=== PATIENT | male | born 1950 | race Two or more races ===

== ENCOUNTER → 2023-05-27 | Outpatient (CLI) | payer OTHER ==
[2023-05-27 08:40] LABS: Basophils # (auto) 0 10 ^3/uL (0-0.2); Basophils % (auto) 0.8 % (0.0-2.0); Eosinophils # (auto) 0.2 10 ^3/uL (0-0.8); Eosinophils % (auto) 3.6 % (0.0-7.0); Hematocrit 45.9 % (41.0-53.0); Hemoglobin 15.3 g/dL (13.5-17.5); Lymphocytes # (auto) 1.7 10 ^3/uL (0.4-5.4); Lymphocytes % (auto) 31.8 % (10.0-50.0); Mean Corpuscular Hemoglobin 30.2 pg (28.0-32.0); Mean Corpuscular Hgb Conc. 33.3 g/dL (32.0-36.0); Mean Corpuscular Volume 90.6 fL (80.0-100.0); Monocytes # (auto) 0.5 10 ^3/uL (0-1.3); Monocytes % (auto) 8.7 % (0.0-12.0); Neutrophils # (auto) 2.9 10 ^3/uL (1.6-8.6); Neutrophils % (auto) 55.1 % (37.0-80.0); Red Blood Cells 5.06 10^6/uL (4.5-5.90); Red Cell Distribution Width 13.5 % (11.8-14.3); White Blood Cell 5.3 10^3/uL (4.4-10.8)
[2023-05-27 09:51] LABS: Alanine Aminotransferase 19 U/L (7-40); Albumin 4.6 g/dL (3.2-4.8); Alkaline Phosphatase 59 U/L (46-116); Anion Gap 4 (5-15); Aspartate Aminotransferase 19 U/L (13-40); BUN/Creatinine Ratio 8.7 (10.0-20.0); Blood Urea Nitrogen 9 mg/dL (9-23); Calcium 9.6 mg/dL (8.5-10.1); Carbon Dioxide 29 mmol/L (20-30); Chloride 106 mmol/L (98-107); Cholesterol 184 mg/dL (< 200); Glucose 101 mg/dL (74-106); Potassium 4.5 mmol/L (3.5-5.1); Sodium 139 mmol/L (136-145); Triglycerides 93 mg/dL (< 150)
[2023-05-27 09:52] LABS: LDL Cholesterol 114 mg/dL (< 100)
[2023-05-27 09:53] LABS: Bilirubin, Total 0.6 mg/dL (0.2-1.0); HDL Cholesterol 60 mg/dL (40-59)
[2023-05-27 09:54] LABS: Total Protein 7.8 g/dL (5.7-8.2)
[2023-05-27 11:16] LABS: Free T4 (Free Thyroxine) 1.42 ng/dL (0.89-1.76)
== END | disposition home or self-care (01) ==
LOC: LAB 08:16
PROVIDERS: ATTEND Internal Medicine
DX: Z00.00 Encounter for general adult medical examination without abnormal findings (principal); Z29.9 Encounter for prophylactic measures, unspecified; R73.03 Prediabetes; E78.00 Pure hypercholesterolemia, unspecified
CPT/HCPCS: 36415; 80053; 80061; 83036; 84153; 84439; 84443; 85025

== ENCOUNTER → 2023-11-26 | Outpatient (CLI) | payer OTHER ==
[2023-11-26 08:35] LABS: Urine Bacteria None Seen /hpf (None Seen)
[2023-11-26 08:41] LABS: Basophils # (auto) 0 10 ^3/uL (0-0.2); Basophils % (auto) 1.1 % (0.0-2.0); Eosinophils # (auto) 0.2 10 ^3/uL (0-0.8); Eosinophils % (auto) 4.4 % (0.0-7.0); Hematocrit 43.7 % (41.0-53.0); Hemoglobin 14.5 g/dL (13.5-17.5); Lymphocytes # (auto) 1.3 10 ^3/uL (0.4-5.4); Mean Corpuscular Hgb Conc. 33.2 g/dL (32.0-36.0); Mean Corpuscular Volume 90.2 fL (80.0-100.0); Monocytes # (auto) 0.4 10 ^3/uL (0-1.3); Neutrophils # (auto) 2.5 10 ^3/uL (1.6-8.6); Neutrophils % (auto) 57.5 % (37.0-80.0); Nucleated Red Blood Cells % 0.1 %; Red Blood Cells 4.84 10^6/uL (4.5-5.90); Red Cell Distribution Width 13.4 % (11.8-14.3); White Blood Cell 4.4 10^3/uL (4.4-10.8)
[2023-11-26 08:45] LABS: Urine Blood Negative /uL (Negative); Urine Clarity Clear (Clear); Urine Color Yellow (Yellow); Urine Mucus FEW (None Seen); Urine Protein, UAD TRACE (Negative); Urine Specific Gravity 1.021 (1.001-1.035); Urine Urobilinogen Normal (Negative); Urine WBC 1 /hpf (0 - 3)
[2023-11-26 09:46] LABS: Alanine Aminotransferase 15 U/L (7-40); Alkaline Phosphatase 74 U/L (46-116); Anion Gap 5 (5-15); Aspartate Aminotransferase 25 U/L (13-40); BUN/Creatinine Ratio 8.7 (10.0-20.0); Blood Urea Nitrogen 9 mg/dL (9-23); Calcium 9.3 mg/dL (8.5-10.1); Carbon Dioxide 28 mmol/L (20-30); Chloride 106 mmol/L (98-107); Glucose 99 mg/dL (74-106); LDL Cholesterol 111 mg/dL (< 100); Potassium 4.3 mmol/L (3.5-5.1); Sodium 139 mmol/L (136-145); Triglycerides 94 mg/dL (< 150)
[2023-11-26 09:47] LABS: Albumin 4.3 g/dL (3.2-4.8); Bilirubin, Total 0.5 mg/dL (0.2-1.0); Cholesterol 172 mg/dL (< 200); HDL Cholesterol 52 mg/dL (40-59); Total Protein 7.6 g/dL (5.7-8.2)
== END | disposition home or self-care (01) ==
LOC: LAB 08:25
PROVIDERS: ATTEND Internal Medicine
DX: Z13.1 Encounter for screening for diabetes mellitus (principal); E78.00 Pure hypercholesterolemia, unspecified; R94.4 Abnormal results of kidney function studies; R73.03 Prediabetes; Z29.9 Encounter for prophylactic measures, unspecified; Z00.01 Encounter for general adult medical examination with abnormal findings
CPT/HCPCS: 36415; 80053; 80061; 81001; 82306; 83036; 84439; 84443; 85025

== ENCOUNTER 2024-01-28 09:04 | Inpatient (IN) | payer OTHER ==
[2024-01-27 07:42] LABS: Urine Bacteria None Seen /hpf (None Seen); Urine WBC None Seen /hpf (0 - 3)
[2024-01-27 08:10] LABS: Basophils # (auto) 0 10 ^3/uL (0-0.2); Basophils % (auto) 0.6 % (0.0-2.0); Eosinophils # (auto) 0.3 10 ^3/uL (0-0.8); Eosinophils % (auto) 5.9 % (0.0-7.0); Hematocrit 44.6 % (41.0-53.0); Lymphocytes # (auto) 1.4 10 ^3/uL (0.4-5.4); Lymphocytes % (auto) 26.6 % (10.0-50.0); Mean Corpuscular Hemoglobin 30.3 pg (28.0-32.0); Mean Corpuscular Hgb Conc. 33.6 g/dL (32.0-36.0); Mean Corpuscular Volume 90.2 fL (80.0-100.0); Monocytes # (auto) 0.5 10 ^3/uL (0-1.3); Monocytes % (auto) 9.3 % (0.0-12.0); Neutrophils # (auto) 3.1 10 ^3/uL (1.6-8.6); Neutrophils % (auto) 57.6 % (37.0-80.0); Red Blood Cells 4.95 10^6/uL (4.5-5.90); Red Cell Distribution Width 13.7 % (11.8-14.3); White Blood Cell 5.3 10^3/uL (4.4-10.8)
[2024-01-27 08:17] LABS: Urine Blood Negative /uL (Negative); Urine Clarity Clear (Clear); Urine Color Light-Yellow (Yellow); Urine Protein, UAD Negative (Negative); Urine Specific Gravity 1.017 (1.001-1.035); Urine Urobilinogen Normal (Negative); Urine pH 6.5 (5.0-9.0)
[2024-01-27 08:26] LABS: INR 1.03 (0.9-1.15); Partial Thromboplastin Time 27.1 SEC (24.5-34.5); Prothrombin Time 10.9 sec (9.3-11.8)
[2024-01-27 08:38] LABS: Alanine Aminotransferase 21 U/L (7-40); Albumin 4.4 g/dL (3.2-4.8); Alkaline Phosphatase 74 U/L (46-116); Anion Gap 4 (5-15); Aspartate Aminotransferase 17 U/L (13-40); BUN/Creatinine Ratio 10.9 (10.0-20.0); Bilirubin, Total 0.5 mg/dL (0.2-1.0); Blood Urea Nitrogen 10 mg/dL (9-23); Calcium 9.6 mg/dL (8.5-10.1); Carbon Dioxide 28 mmol/L (20-30); Chloride 107 mmol/L (98-107); Glucose 100 mg/dL (74-106); Potassium 4.6 mmol/L (3.5-5.1); Sodium 139 mmol/L (136-145); Total Protein 7.3 g/dL (5.7-8.2)
[~2024-01-28] VITALS: Ht 170.2 cm; Wt 71.5 kg
[2024-01-28] MEDS ORDERED: PROPOFOL 10 MG/ML 20 ML IV ONE (09:19)
[2024-01-28] MEDS ORDERED: LIDOCAINE 2% (LOCAL ANESTH.) PF 5ml SDV ONE ×2 (09:19→09:38)
[2024-01-28] MEDS ORDERED: ONDANSETRON HCL 4 MG/2 ML VIAL ONE (09:19)
[2024-01-28] MEDS ORDERED: PHENYLEPHRINE HCL 10 MG/ML VL ONE (09:19)
[2024-01-28] MEDS ORDERED: DexAMETHasone SOD PHOS 10MG/1ML VIAL INJ ONE (09:19)
[2024-01-28] MEDS ORDERED: ROCURONIUM 10MG/ML 10ML VIAL IV ONE (09:19)
[2024-01-28] MEDS ORDERED: SODIUM CHLORIDE LOCK 10 ML ONE ×2 (09:19→10:00)
[2024-01-28] MEDS ORDERED: ePHEDrine SULFATE 50 MG/ML AMP ONE (09:19)
[2024-01-28] MEDS ORDERED: KETOROLAC TROMETH 30 MG/ML 1ML VIAL ONE (09:19)
[2024-01-28] MEDS: MAGNESIUM SULFATE 1GM/100ML 100 ML IV ONE (09:28)
[2024-01-28] MEDS: ceFAZolin 2 GM/D5W50ml 50 ML IV ONE (09:28)
[2024-01-28] MEDS: GABAPENTIN 300 MG CAP PO ONE (09:30)
[2024-01-28] MEDS: ACETAMINOPHEN IV 1000 MG/100ML (10MG/ML) IV ONE (09:30)
[2024-01-28] MEDS: TRANEXAMIC ACID 20 ML ONE (09:51)
[2024-01-28] MEDS ORDERED: LIDOCAINE HCL 100 MG/5ML (2%) SYRG INJ IV ONE ×2 (10:01→12:46)
[2024-01-28] MEDS: levoFLOXacin 750MG 150 ML IV ONE (10:15)
[2024-01-28] MEDS ORDERED: KETAMINE 50mg/ML 1ml syringe ONE ×2 (10:38→12:49)
[2024-01-28] MEDS ORDERED: fentaNYL CITRATE 100 MCG/2 ML VL ONE (10:38)
[2024-01-28] MEDS ORDERED: MIDAZOLAM HCL 2MG/2ML 2ml VIAL (1mg/ml) ONE (10:38)
[2024-01-28] MEDS: LIDOCAINE W/ EPINEPHRINE 1% 20ML VIAL ONE (11:52)
[2024-01-28] MEDS ORDERED: SUGAMMADEX 200mg/2ml Vial (100MG/ML) IV ONE (13:31)
[2024-01-28] MEDS ORDERED: HYDROmorphone HCL 2 MG/ML VL/or syr ONE (13:34)
[2024-01-28] MEDS ORDERED: ONDANSETRON HCL 4 MG/2 ML VIAL IV PRN (14:00)
[2024-01-28] MEDS ORDERED: MORPHINE SULFATE INJ 2 MG/ml SYRG IV PRN (14:00)
[2024-01-28] MEDS ORDERED: NITROGLYCERIN 0.4 MG SL TAB SL PRN (14:00)
[2024-01-28] MEDS ORDERED: ACETAMINOPHEN 325 MG TAB PO PRN (14:00)
[2024-01-28 14:29] VITALS: PULSE 69; RESP 13; O2SAT 97
[2024-01-28] MEDS: HYDROmorphone HCL 2 MG/ML VL/or syr ONE (14:59)
[2024-01-28] MEDS ORDERED: fentaNYL CITRATE 100 MCG/2 ML VL IV PRN (15:00)
[2024-01-28] MEDS ORDERED: ePHEDrine SULFATE 50 MG/ML AMP IV PRN (15:00)
[2024-01-28] MEDS ORDERED: HYDROmorphone HCL 2 MG/ML VL/or syr IV PRN ×2 (15:00)
[2024-01-28] MEDS: ONDANSETRON HCL 4 MG/2 ML VIAL IV ONE (15:00)
[2024-01-28] MEDS: HYDROmorphone HCL 2 MG/ML VL/or syr IV PRN (15:03)
[2024-01-28 16:30] VITALS: PULSE 72; RESP 18; O2SAT 98
[2024-01-28 17:00] VITALS: BP 132/76; PULSE 71; RESP 18; TEMP 97.5; O2SAT 97
[2024-01-28 19:45] VITALS: PULSE 77; RESP 20; O2SAT 98
[2024-01-28] MEDS: MORPHINE SULFATE INJ 2 MG/ml SYRG IV PRN (19:56)
[2024-01-28 21:00] VITALS: BP 121/74; PULSE 91; RESP 18; TEMP 97.9; O2SAT 95
[2024-01-28] MEDS: DOCUSATE SOD 100 MG CAP PO SCH (21:20)
[2024-01-28] MEDS: ceFAZolin 1GM/50ML 50 ML IV SCH (21:20)
[2024-01-28] MEDS: CYCLOBENZAPRINE HCL 10 MG TAB PO SCH (21:20)
[2024-01-28] MEDS: HYDROcodone-ACET 10/325MG TAB PO PRN (23:05)
[2024-01-29] VITALS (8 sets, daily range): BP systolic 104–146; BP diastolic 50–86; PULSE 71–89; RESP 16–18; TEMP 97.6–98.5; O2SAT 94–97
[2024-01-29 05:47] LABS: Basophils # (auto) 0 10 ^3/uL (0-0.2); Basophils % (auto) 0.1 % (0.0-2.0); Eosinophils # (auto) 0 10 ^3/uL (0-0.8); Hematocrit 35.5 % (41.0-53.0); Hemoglobin 12.1 g/dL (13.5-17.5); Lymphocytes # (auto) 0.7 10 ^3/uL (0.4-5.4); Lymphocytes % (auto) 7.6 % (10.0-50.0); Mean Corpuscular Hemoglobin 31.1 pg (28.0-32.0); Mean Corpuscular Hgb Conc. 34.1 g/dL (32.0-36.0); Mean Corpuscular Volume 91.1 fL (80.0-100.0); Monocytes # (auto) 0.5 10 ^3/uL (0-1.3); Monocytes % (auto) 5.4 % (0.0-12.0); Neutrophils % (auto) 86.9 % (37.0-80.0); Red Cell Distribution Width 13.2 % (11.8-14.3); White Blood Cell 9.2 10^3/uL (4.4-10.8)
[2024-01-29 06:05] LABS: Alanine Aminotransferase 16 U/L (7-40); Alkaline Phosphatase 55 U/L (46-116); Anion Gap 4 (5-15); BUN/Creatinine Ratio 12.5 (10.0-20.0); Blood Urea Nitrogen 11 mg/dL (9-23); Calcium 8.4 mg/dL (8.7-10.4); Carbon Dioxide 22 mmol/L (20-30); Chloride 110 mmol/L (98-107); Glucose 151 mg/dL (74-106); Potassium 4.3 mmol/L (3.5-5.1); Sodium 136 mmol/L (136-145)
[2024-01-29 06:07] LABS: Albumin 3.4 g/dL (3.2-4.8); Aspartate Aminotransferase 24 U/L (13-40); Bilirubin, Total 0.4 mg/dL (0.2-1.0); Total Protein 5.9 g/dL (5.7-8.2)
[2024-01-29] MEDS: D5W/SOD CHLO 0.9% 1,000 ML IV SCH ×2 (10:00→17:50)
[2024-01-30] VITALS (8 sets, daily range): BP systolic 125–136; BP diastolic 66–86; PULSE 70–94; RESP 16–19; TEMP 97.8–98.3; O2SAT 95–98
[2024-01-31] VITALS (8 sets, daily range): BP systolic 103–128; BP diastolic 61–75; PULSE 69–89; RESP 16–18; TEMP 97.7–98.5; O2SAT 93–96
[2024-01-31] MEDS ORDERED: CYCL-611 PO (16:50)
[2024-01-31] MEDS ORDERED: DOCU-265 PO (16:50)
[2024-01-31] MEDS ORDERED: HYDR-4798 PO (16:50)
[2024-02-01] VITALS (8 sets, daily range): BP systolic 110–128; BP diastolic 58–76; PULSE 78–92; RESP 18–78; TEMP 97.5–98.1; O2SAT 95–96
[2024-02-01 08:06] LABS: PSA Free <0.02 ng/mL; Prostate Specific Antigen <0.1 ng/mL (0.0-4.0)
[2024-02-01] MEDS: HYDROcodone-ACET 10/325MG TAB PO PRN (15:59)
[2024-02-01] MEDS: POLYETHYLENE GLYCOL 17 GM PWDR PO SCH (21:23)
[2024-02-02 01:00] VITALS: BP 106/63; PULSE 77; RESP 18; TEMP 97.8; O2SAT 95
[2024-02-02 05:00] VITALS: BP 115/64; PULSE 79; RESP 18; TEMP 97.7; O2SAT 94
[2024-02-02 09:00] VITALS: BP 109/65; PULSE 67; RESP 20; TEMP 98.5; O2SAT 97
[2024-02-02] MEDS ORDERED: POLYETHYLENE GLYCOL 17 GM PWDR PO SCH (10:00)
[2024-02-02 13:00] VITALS: BP 112/64; PULSE 84; RESP 16; TEMP 98.2; O2SAT 95
[2024-02-02 17:00] VITALS: BP 119/63; PULSE 78; RESP 14; TEMP 97.5; O2SAT 93
== END 2024-02-02 18:45 | disposition home health service (06) | DRG 460 ==
LOC: SUR 09:04 → OVERFLOW 14:03 → WEST WING 16:30
PROVIDERS: ADMIT Orthopaedic Surgery; ATTEND Internal Medicine
PROC: 01NB0ZZ Release Lumbar Nerve, Open Approach (ICD-10-PCS; 2024-01-28)
PROC: 00NY0ZZ Release Lumbar Spinal Cord, Open Approach (ICD-10-PCS; 2024-01-28)
PROC: 4A11X4G Monitoring of Peripheral Nervous Electrical Activity, Intraoperative, External Approach (ICD-10-PCS; 2024-01-28)
PROC: 0SG10AJ Fusion of 2 or more Lumbar Vertebral Joints with Interbody Fusion Device, Posterior Approach, Anterior Column, Open Approach (ICD-10-PCS; principal; 2024-01-28 10:58)
DX: M48.062 Spinal stenosis, lumbar region with neurogenic claudication (principal); M51.36 Other intervertebral disc degeneration, lumbar region; M54.16 Radiculopathy, lumbar region; I10 Essential (primary) hypertension; M62.830 Muscle spasm of back; D64.9 Anemia, unspecified; E55.9 Vitamin D deficiency, unspecified; E78.5 Hyperlipidemia, unspecified; R73.03 Prediabetes; R73.9 Hyperglycemia, unspecified; M47.896 Other spondylosis, lumbar region; Z82.49 Family history of ischemic heart disease and other diseases of the circulatory system; Z85.72 Personal history of non-Hodgkin lymphomas; Z85.46 Personal history of malignant neoplasm of prostate
CPT/HCPCS: 36415; 72100; 76000; 80053; 81001; 83036; 84154; 85025; 85610; 85730; 86850; 86900; 86901; 97110; 97116; 97163; 97530; G0378; J0131; J1100; J1885; J2001; J2250; J2405; J2704; J7042

== ENCOUNTER → 2024-06-02 | Outpatient (CLI) | payer OTHER ==
[~2024-06-02] MED LIST: CYCL-611 PO; DOCU-265 PO; HYDR-4798 PO
[2024-06-02 11:38] LABS: Urine Bacteria None Seen /hpf (None Seen)
[2024-06-02 12:24] LABS: Urine Blood Negative /uL (Negative); Urine Clarity Clear (Clear); Urine Color Yellow (Yellow); Urine Mucus FEW (None Seen); Urine Protein, UAD TRACE (Negative); Urine Specific Gravity 1.022 (1.001-1.035); Urine Urobilinogen Normal (Negative); Urine WBC <1 /hpf (0 - 3)
== END | disposition home or self-care (01) ==
LOC: LAB 11:36
PROVIDERS: ATTEND Internal Medicine
DX: R73.03 Prediabetes (principal); N18.2 Chronic kidney disease, stage 2 (mild)
CPT/HCPCS: 36415; 81001; 82043; 82570

== ENCOUNTER → 2024-12-14 | Outpatient (CLI) | payer OTHER ==
[2024-12-14 07:26] LABS: Urine Bacteria None Seen /hpf (None Seen)
[2024-12-14 07:33] LABS: Basophils # (auto) 0.1 10 ^3/uL (0-0.2); Basophils % (auto) 0.9 % (0.0-2.0); Eosinophils # (auto) 0.3 10 ^3/uL (0-0.8); Eosinophils % (auto) 4.9 % (0.0-7.0); Hemoglobin 15.7 g/dL (13.5-17.5); Lymphocytes # (auto) 1.6 10 ^3/uL (0.4-5.4); Mean Corpuscular Hemoglobin 31.1 pg (28.0-32.0); Mean Corpuscular Hgb Conc. 34.2 g/dL (32.0-36.0); Mean Corpuscular Volume 90.9 fL (80.0-100.0); Monocytes # (auto) 0.5 10 ^3/uL (0-1.3); Monocytes % (auto) 8.3 % (0.0-12.0); Neutrophils # (auto) 3.3 10 ^3/uL (1.6-8.6); Neutrophils % (auto) 57.9 % (37.0-80.0); Nucleated Red Blood Cells % 0.2 %; Platelet Count (auto) 175 10^3/uL (140-450); Red Blood Cells 5.06 10^6/uL (4.5-5.90); Red Cell Distribution Width 13.6 % (11.8-14.3); White Blood Cell 5.7 10^3/uL (4.4-10.8)
[2024-12-14 07:49] LABS: Urine Blood Negative /uL (Negative); Urine Clarity Clear (Clear); Urine Color Light-Yellow (Yellow); Urine Protein, UAD Negative (Negative); Urine Squamous Epithelial Cell FEW /hpf (<5); Urine Urobilinogen Normal (Negative); Urine WBC < 1 /HPF (0-3); Urine pH 6.5 (5.0-9.0)
[2024-12-14 07:57] LABS: Creatinine, Urine 148.86 mg/dL (30.0-125.0)
[2024-12-14 09:12] LABS: Alanine Aminotransferase 20 U/L (7-40); Alkaline Phosphatase 73 U/L (46-116); Anion Gap 9 (5-15); BUN/Creatinine Ratio 11.8 (10.0-20.0); Blood Urea Nitrogen 12 mg/dL (9-23); Calcium 9.9 mg/dL (8.7-10.4); Carbon Dioxide 27 mmol/L (20-31); Chloride 104 mmol/L (98-107); Glucose 104 mg/dL (74-106); Sodium 140 mmol/L (136-145); Triglycerides 112 mg/dL (< 150)
[2024-12-14 09:13] LABS: LDL Cholesterol 120 mg/dL (< 100); Total Protein 7.9 g/dL (5.7-8.2)
[2024-12-14 09:14] LABS: Albumin 4.7 g/dL (3.2-4.8); Aspartate Aminotransferase 21 U/L (13-40); Bilirubin, Total 0.6 mg/dL (0.2-1.0); Cholesterol 181 mg/dL (< 200); HDL Cholesterol 53 mg/dL (40-59)
== END | disposition home or self-care (01) ==
LOC: LAB 07:10
PROVIDERS: ATTEND Internal Medicine
DX: N18.2 Chronic kidney disease, stage 2 (mild) (principal); E78.00 Pure hypercholesterolemia, unspecified; R73.03 Prediabetes; R82.90 Unspecified abnormal findings in urine; R03.0 Elevated blood-pressure reading, without diagnosis of hypertension; Z00.01 Encounter for general adult medical examination with abnormal findings
CPT/HCPCS: 36415; 80053; 80061; 81001; 82043; 82570; 83036; 84439; 84443; 85025

== ENCOUNTER 2025-03-15 06:45 | Outpatient (CLI) | payer OTHER ==
[2025-03-15 07:54] LABS: Alanine Aminotransferase 17 U/L (7-40); Albumin 4.4 g/dL (3.2-4.8); Alkaline Phosphatase 62 U/L (46-116); Anion Gap 7 (5-15); BUN/Creatinine Ratio 13.7 (10.0-20.0); Blood Urea Nitrogen 14 mg/dL (9-23); Calcium 9.0 mg/dL (8.7-10.4); Carbon Dioxide 27 mmol/L (20-31); Glucose 99 mg/dL (74-106); Potassium 4.1 mmol/L (3.5-5.1); Sodium 141 mmol/L (136-145); Total Protein 7.3 g/dL (5.7-8.2); Triglycerides 88 mg/dL (< 150)
[2025-03-15 07:55] LABS: Bilirubin, Total 0.4 mg/dL (0.2-1.0); Chloride 107 mmol/L (98-107); Cholesterol 180 mg/dL (< 200); HDL Cholesterol 59 mg/dL (40-59)
== END 2025-03-15 17:00 | disposition home or self-care (01) ==
LOC: LAB 06:45
PROVIDERS: ATTEND Internal Medicine
DX: N18.2 Chronic kidney disease, stage 2 (mild) (principal); E78.5 Hyperlipidemia, unspecified; R73.03 Prediabetes
CPT/HCPCS: 36415; 80053; 80061; 83036